=== PATIENT | female | born 1965 | race Two or more races ===

== ENCOUNTER → 2025-01-18 | Outpatient (CLI) | payer OTHER, SELFPAY ==
--- NOTE | 2025-01-18 09:04 | XR_ITS ---
Examination: Foot bilateral, 6 views Technique: AP, oblique, lateral views each foot total 6 views Date and time of exam: January 18, 2025 0918 hours INDICATIONS: Bilateral foot stiffness and pain 5 years FINDINGS: Moderate osteopenia. 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
--- NOTE | 2025-01-18 09:04 | XR_ITS ---
Examination: Bilateral hands, 6 views. Technique: AP, Oblique, Lateral each hand total 6 views Date and time of exam: January 18, 2025 0918 hours INDICATIONS: Bilateral hand pain and stiffness beginning 5 years ago. FINDINGS: Bilateral mild to moderate osteoarthritis distal interphalangeal joints second through fifth digits and interphalangeal joints first digits Bilateral mild osteoarthritis first carpometacarpal joints Bilateral mild osteoarthritis radiocarpal joints. No erosive arthritis No fractures Impression: Bilateral osteoarthritis as above
== END | disposition home or self-care (01) ==
LOC: CDIM 08:43
PROVIDERS: PCP Registered Nurse; Referring Provider Registered Nurse; Visit Provider Registered Nurse
DX: M19.072 Primary osteoarthritis, left ankle and foot (principal); M19.071 Primary osteoarthritis, right ankle and foot; M77.32 Calcaneal spur, left foot; M77.31 Calcaneal spur, right foot; M19.042 Primary osteoarthritis, left hand; M19.041 Primary osteoarthritis, right hand
CPT/HCPCS: 73130; 73630